=== PATIENT | male | born 1950 ===

== ENCOUNTER 2024-06-11 17:32 | Inpatient (IN) | payer OTHER ==
[~2024-06-11] VITALS: Ht 182.9 cm; Wt 109.8 kg
[2024-06-11 18:06] LABS: BASOPHILS ABSOLUTE AUTO 0.03 K/mm3 (0.00-0.23); BASOPHILS PERCENT AUTO 0 % (0-2); EOSINOPHILS ABSOLUTE AUTO 0.16 K/mm3 (0.00-0.68); EOSINOPHILS PERCENT AUTO 1 % (0-6); Hematocrit 45.7 % (37.0-53.0); Hemoglobin 15.4 g/dL (13.5-17.5); IMMATURE GRAN ABSOLUTE AUTO 0.05 K/mm3 (0.00-0.10); IMMATURE GRAN PERCENT AUTO 0 % (0-1); LYMPHOCYTES ABSOLUTE AUTO 1.52 K/mm3 (0.84-5.20); LYMPHOCYTES PERCENT AUTO 14 % (21-46); MONOCYTES ABSOLUTE AUTO 0.86 K/mm3 (0.16-1.47); MONOCYTES PERCENT AUTO 8 % (4-13); Mean Corpuscular HGB 30.3 pg (26.0-34.0); Mean Corpuscular HGB Conc 33.7 g/dL (31.5-36.5); Mean Corpuscular Volume 90 fL (80-100); Mean Platelet Volume 9.7 fL (9.1-12.4); NEUTROPHILS ABSOLUTE AUTO 8.58 K/mm3 (1.96-9.15); NEUTROPHILS PERCENT AUTO 77 % (41-73); Platelet Count 213 K/mm3 (150-400); RDW Coefficient Variation 12.8 % (11.7-14.2); Red Blood Cell Count 5.09 M/mm3 (4.30-5.90)
[2024-06-11 18:27] LABS: Albumin, Blood 3.5 g/dL (3.4-5.0); Albumin/Globulin Ratio 0.9 (0.8-1.8); Bilirubin, Total 0.5 mg/dL (0.1-1.0); Bun/Creatinine Ratio 22.2 (12.0-20.0); Calcium, Blood 8.9 mg/dL (8.5-10.1); Creatinine, Blood 0.86 mg/dL (0.60-1.20); Globulin, Blood 3.7 g/dL (2.2-4.0); Total Protein, Blood 7.2 g/dL (6.4-8.2)
[2024-06-11] MEDS ORDERED: NS 1,000 ML IV SCH (21:40)
[2024-06-11] MEDS ORDERED: Ondansetron HCl 2 MG / ML 2ML Vial IV PRN (21:40)
[2024-06-11] MEDS ORDERED: Albuterol 2.5 MG/3 ML VIAL INH PRN (21:50)
[2024-06-11] MEDS ORDERED: Temazepam 15 MG Cap PO ONE (21:50)
[2024-06-11] MEDS ORDERED: NS 1,000 ML IV ONE (22:00)
[2024-06-11 23:36] LABS: Influenza A, PCR NEGATIVE (NEGATIVE); Influenza B, PCR NEGATIVE (NEGATIVE); Resp Syncytial Virus, PCR NEGATIVE (NEGATIVE); SARS-Cov-2 (COVID-19) PCR, MMC NEGATIVE (NEGATIVE)
[2024-06-11 23:48] VITALS: BP 144/71
[2024-06-11] MEDS ORDERED: ALBU90OI INH (23:51)
[2024-06-11] MEDS ORDERED: ALBU2.5V5 INH (23:53)
[2024-06-11] MEDS ORDERED: CARBOXYMETHYLCE15 ML BOTHEYES (23:54)
[2024-06-11] MEDS ORDERED: FLUTICASONE P15.8 M1 NS (23:57)
[2024-06-11] MEDS ORDERED: DUPIXENT P300 MG/2 M (23:59)
[2024-06-12] VITALS (7 sets, daily range): BP systolic 116–123; BP diastolic 58–71
[2024-06-12] MEDS ORDERED: LISI20 PO
[2024-06-12] MEDS ORDERED: METF500 PO (00:01)
[2024-06-12] MEDS ORDERED: DULERA 100 MCG/13 GM INH (00:04)
[2024-06-12] MEDS ORDERED: MONT10T PO (00:05)
[2024-06-12] MEDS ORDERED: OMEP20ER PO (00:06)
[2024-06-12] MEDS ORDERED: LYRICA150 M1 PO (00:07)
[2024-06-12] MEDS ORDERED: XARELTO20 MG PO (00:08)
[2024-06-12] MEDS ORDERED: Crestor40 MG PO (00:09)
[2024-06-12] MEDS ORDERED: WEGOVY0.25 MG/0. SQ (00:10)
[2024-06-12] MEDS ORDERED: TAMS.4ER PO (00:10)
[2024-06-12] MEDS ORDERED: Ampicillin Sod/Sulbactam Sod 3 GM in NS 100 ML IV SCH (00:25)
[2024-06-12] MEDS ORDERED: Heparin Sodium,Porcine/0.5 NS 500 ML IV SCH (01:55)
[2024-06-12 02:08] LABS: International Normalized Ratio 1.02; Prothrombin Time Results 10.9 Sec (9.7-11.5)
[2024-06-12] MEDS ORDERED: Loperamide HCl 2 MG Cap PO PRN (02:50)
--- NOTE | 2024-06-12 07:09 | NUR ---
SHIFT SUMMARY PT ARRIVED 2039. PT EXPERIENCING VOMITING, DIARRHEA 0133. PT ABDOMEN FIRM, TENDER. PT RESTING COMFORTABLY AFTER BEING MEDICATED FOR NAUSEA PER EMAR. PT HAS HAD MORE THAN 3 EPISODES OF DIARRHEA IN 24 HOURS, SO PT PUT ON CONTACT ISO FOR CDIFF RULE-OUT. APPROX [id number], PT LACTIC ACID RESULTS SHOWED CRITICAL HIGH OF 2.3. DR. GARCIA AND APPLICATIONS DEVELOPMENT CONSULTANT NOTIFIED. SECOND IV PLACED D/T PT RECEIVING IV FLUIDS AND ANTIBIOTICS. HEPARIN DRIP STARTED PER EMAR. CONFIRMED ORDER FOR CT ON 06/12/24. PT HAS BEEN PLEASANT AND COOPERATIVE WITH CARE.
[2024-06-12] MEDS ORDERED: Insulin Human Lispro 100 Units/ML 3ML Syringe SC SCH (07:30)
[2024-06-12 08:10] LABS: BASOPHILS ABSOLUTE AUTO 0.07 K/mm3 (0.00-0.23); BASOPHILS PERCENT AUTO 1 % (0-2); EOSINOPHILS ABSOLUTE AUTO 0.21 K/mm3 (0.00-0.68); EOSINOPHILS PERCENT AUTO 2 % (0-6); Hematocrit 45.7 % (37.0-53.0); Hemoglobin 14.8 g/dL (13.5-17.5); IMMATURE GRAN ABSOLUTE AUTO 0.04 K/mm3 (0.00-0.10); IMMATURE GRAN PERCENT AUTO 0 % (0-1); LYMPHOCYTES ABSOLUTE AUTO 0.71 K/mm3 (0.84-5.20); LYMPHOCYTES PERCENT AUTO 6 % (21-46); MONOCYTES ABSOLUTE AUTO 1.34 K/mm3 (0.16-1.47); MONOCYTES PERCENT AUTO 12 % (4-13); Mean Corpuscular HGB 29.8 pg (26.0-34.0); Mean Corpuscular HGB Conc 32.4 g/dL (31.5-36.5); Mean Corpuscular Volume 92 fL (80-100); Mean Platelet Volume 10.1 fL (9.1-12.4); NEUTROPHILS ABSOLUTE AUTO 8.97 K/mm3 (1.96-9.15); NEUTROPHILS PERCENT AUTO 79 % (41-73); Platelet Count 212 K/mm3 (150-400); RDW Coefficient Variation 13.1 % (11.7-14.2); RDW Standard Deviation 43.9 fL (35.1-46.3); Red Blood Cell Count 4.97 M/mm3 (4.30-5.90); White Blood Cell Count 11.34 K/mm3 (4.00-11.30)
[2024-06-12 08:13] LABS: Albumin, Blood 3.2 g/dL (3.4-5.0); Bilirubin, Total 0.6 mg/dL (0.1-1.0); Bun/Creatinine Ratio 26.2 (12.0-20.0); Calcium, Blood 8.6 mg/dL (8.5-10.1); Creatinine, Blood 0.8 mg/dL (0.60-1.20); Globulin, Blood 3.3 g/dL (2.2-4.0); Magnesium, Blood 2.1 mg/dL (1.6-2.4); Potassium, Blood 4.6 mmol/L (3.5-5.5); Total Protein, Blood 6.5 g/dL (6.4-8.2)
[2024-06-12] MEDS ORDERED: Lactobacil 2-S.Thermo-Bifido 1 1 Cap PO SCH (09:00)
[2024-06-12] MEDS ORDERED: Rivaroxaban 10 MG Tab PO SCH (09:00)
--- NOTE | 2024-06-12 09:00 | NUR ---
pt laying in bed awake, a/ox4, pleasant and cooperative with care, follows commands well, lungs are clear, a bit dim in bases, resp even and unlabored, no cough noted, hrr, no edema noted, ppp+1, cap refill <3 sec, vs stable, afebrile, piv to rac site is clear and patent, btx4, abd flat soft nontender, last bm was during the night, voids with out diff, skin c/w/d, maew, edna, call light in reach.
[2024-06-12] MEDS ORDERED: Dose Adjust by Pharmacy XX STA ×2 (11:11→18:34)
[2024-06-12] MEDS ORDERED: Heparin Sodium 5000 Units/ML 1ML MDV IV ONE ×2 (11:15→18:35)
[2024-06-12] MEDS ORDERED: Fluticasone 0.05% Nasal Spray ONE (12:10)
[2024-06-12] MEDS ORDERED: Mometasone/Formoterol MDI 100/5 mcg 13 GM INH SCH (12:20)
--- NOTE | 2024-06-12 19:50 | NUR ---
pt had an uneventful shift, no acute changes, sits on the side of the bed for meals, family in to visit, will have an MRI in am. call light in reach.
[2024-06-12] MEDS ORDERED: Tamsulosin HCl 0.4 MG Cap PO SCH (21:00)
[2024-06-12] MEDS ORDERED: Pregabalin 75 MG Cap PO SCH (21:00)
[2024-06-13] MEDS ORDERED: Misc. Inpatient Respiratory Med INH SCH (00:20)
--- NOTE | 2024-06-13 04:25 | NUR ---
SHIFT SUMMARY PATIENT HAD NO ACUTE CHANGES. ALERT ORIENTED AND ONE ASSIST TO BR. DENIES CHEST PAIN, SOB, AND N/V. PIVS INTACT. NS INFUSING @ 100 mL/HR. IV ABX INFUSED. CBG 156. TELE MONITOR NSR 80. ON 2L O2 NC PRN FOR SLEEP. CALL LIGHT IN REACH. BED IN LOWEST POSITION. WILL CONTINUE TO MONITOR UNTIL DAY SHIFT NURSE ASSUMES CARE.
[2024-06-13 05:02] LABS: BASOPHILS ABSOLUTE AUTO 0.03 K/mm3 (0.00-0.23); BASOPHILS PERCENT AUTO 1 % (0-2); EOSINOPHILS ABSOLUTE AUTO 0.23 K/mm3 (0.00-0.68); EOSINOPHILS PERCENT AUTO 4 % (0-6); Hematocrit 40.9 % (37.0-53.0); Hemoglobin 13.5 g/dL (13.5-17.5); IMMATURE GRAN ABSOLUTE AUTO 0.02 K/mm3 (0.00-0.10); IMMATURE GRAN PERCENT AUTO 0 % (0-1); LYMPHOCYTES ABSOLUTE AUTO 1.55 K/mm3 (0.84-5.20); LYMPHOCYTES PERCENT AUTO 25 % (21-46); MONOCYTES ABSOLUTE AUTO 0.77 K/mm3 (0.16-1.47); MONOCYTES PERCENT AUTO 12 % (4-13); Mean Corpuscular Volume 91 fL (80-100); Mean Platelet Volume 9.9 fL (9.1-12.4); NEUTROPHILS ABSOLUTE AUTO 3.61 K/mm3 (1.96-9.15); NEUTROPHILS PERCENT AUTO 58 % (41-73); Platelet Count 181 K/mm3 (150-400); RDW Standard Deviation 42.6 fL (35.1-46.3); White Blood Cell Count 6.21 K/mm3 (4.00-11.30)
[2024-06-13 05:37] LABS: Albumin, Blood 2.9 g/dL (3.4-5.0); Albumin/Globulin Ratio 0.9 (0.8-1.8); Bilirubin, Total 0.4 mg/dL (0.1-1.0); Bun/Creatinine Ratio 16.2 (12.0-20.0); Calcium, Blood 8.5 mg/dL (8.5-10.1); Creatinine, Blood 0.8 mg/dL (0.60-1.20); Globulin, Blood 3.1 g/dL (2.2-4.0); Potassium, Blood 4.2 mmol/L (3.5-5.5); Prolactin 10.5 ng/mL (2.5-17.4)
[2024-06-13] MEDS ORDERED: Omeprazole 20 MG CapCR PO SCH (06:00)
[2024-06-13 08:04] VITALS: BP 110/60
[2024-06-13] MEDS ORDERED: Lisinopril 20 MG Tab PO SCH (09:00)
[2024-06-13] MEDS ORDERED: Rosuvastatin Calcium 10 MG Tab PO SCH (09:00)
[2024-06-13 11:29] VITALS: BP 140/75
[2024-06-13 15:45] VITALS: BP 118/65
[2024-06-13] MEDS ORDERED: BREZTRI AEROS10.7 GM INH (15:49)
--- NOTE | 2024-06-13 16:11 | NUR ---
DISCHARGE REVIEWED WITH PT. NO NEW MEDS. IV AND TELE REMOVED BY ARABELLA ISAAC. PT WHEELED TO DOOR BY SHRUTHI AT 1615
== END 2024-06-13 16:40 | disposition home or self-care (01) | DRG 312 ==
LOC: ER 17:32 → MEDS 17:33 → ER 17:33 → MEDS 17:33
PROVIDERS: Internal Medicine; Nurse Practitioner Acute Care; Physician Assistant; Student in an Organized Health Care Education/Training Program; ADMIT Internal Medicine
PROC: 5A09357 Assistance with Respiratory Ventilation, Less than 24 Consecutive Hours, Continuous Positive Airway Pressure (ICD-10-PCS; principal; 2024-06-12)
DX: R55 Syncope and collapse (principal); E87.20 Acidosis, unspecified; E22.1 Hyperprolactinemia; K57.30 Diverticulosis of large intestine without perforation or abscess without bleeding; J44.9 Chronic obstructive pulmonary disease, unspecified; E11.9 Type 2 diabetes mellitus without complications; E66.01 Morbid (severe) obesity due to excess calories; E78.5 Hyperlipidemia, unspecified; I10 Essential (primary) hypertension; G47.33 Obstructive sleep apnea (adult) (pediatric); I45.10 Unspecified right bundle-branch block; K52.9 Noninfective gastroenteritis and colitis, unspecified; Z79.4 Long term (current) use of insulin; Z86.73 Personal history of transient ischemic attack (TIA), and cerebral infarction without residual deficits; Z79.84 Long term (current) use of oral hypoglycemic drugs; Z79.01 Long term (current) use of anticoagulants; Z87.891 Personal history of nicotine dependence; Z68.27 Body mass index [BMI] 27.0-27.9, adult
CPT/HCPCS: 0241U; 36415; 70553; 71046; 74174; 74177; 80053; 82947; 83605; 83735; 83880; 84146; 84484; 85025; 85610; 85730; 93005; 93010; 94640; 94660; 94664; 94762; 96361; 96365; 96366; 96367; 96375; 96376; 99285-25; A9270; A9579; G0378; J0295; J1644; J2405; J7030; Q9967